=== PATIENT | female | born 1945 | race Two or more races ===

== ENCOUNTER 2018-12-10 07:15 | Outpatient (CLI) | payer OTHER | END 2018-12-10 08:48 | disposition home or self-care (01) | LOC: NUCLEAR 07:15 | DX: I11.9 Hypertensive heart disease without heart failure (principal); I20.8 Other forms of angina pectoris | CPT/HCPCS: 78452; 93017; A9500; J0153 ==

== ENCOUNTER 2019-05-12 08:15 | Inpatient (IN) | payer OTHER ==
[~2019-05-12] VITALS: Ht 162.6 cm; Wt 78.9 kg
[2019-05-12] MEDS ORDERED: CRESTOR20 MG PO (10:35)
[2019-05-12] MEDS ORDERED: LOSARTAN POTASS50 MG PO (10:35)
[2019-05-12] MEDS ORDERED: CELEXA40 MG PO (10:36)
[2019-05-12] MEDS ORDERED: PROTONIX40 MG PO (10:36)
[2019-05-12] MEDS ORDERED: ELIQUIS5 MG PO (10:36)
[2019-05-12] MEDS ORDERED: TOPROL XL25 M1 PO (10:37)
[2019-05-12] MEDS ORDERED: PROSOM PO (10:37)
[2019-05-12] MEDS ORDERED: PEPCID40 MG PO (10:37)
[2019-05-12] MEDS ORDERED: ZYPREXA2.5 MG PO (10:37)
[2019-05-18] MEDS ORDERED: ESTAZOLAM1 MG PO (08:24)
[2019-05-21] MEDS ORDERED: OXYC1TAB9 PO (07:15)
[2019-05-21] MEDS ORDERED: ELIQUIS2.5 MG PO (07:15)
[2019-05-21] MEDS ORDERED: INTEGRA PLUS C1 EACH PO (07:15)
== END 2019-05-21 11:00 | DRG 470 ==
LOC: ADM 08:15 → O/R 05-18 06:53 → SURG 05-18 06:53 → SURH 05-18 07:00 → EDSTATUS 05-18 08:15 → ADM 05-18 08:15 → SURG 05-18 14:55
PROVIDERS: ADMIT Orthopaedic Surgery Sports Medicine
PROC: 0SRC0J9 Replacement of Right Knee Joint with Synthetic Substitute, Cemented, Open Approach (ICD-10-PCS; principal; 2019-05-18 07:00)
DX: M17.11 Unilateral primary osteoarthritis, right knee (principal); D62 Acute posthemorrhagic anemia; I10 Essential (primary) hypertension; K21.9 Gastro-esophageal reflux disease without esophagitis